=== PATIENT | female | born 1950 | race Caucasian/White ===

== ENCOUNTER 2021-03-11 10:49 | Day surgery (SDC) | payer MEDICARE, OTHER ==
[2021-03-11] MEDS ORDERED: cefUROXime sodium 0.005 GM in Sodium Chloride Flush 30 ML*** 0.5 ML IJ SCH (11:00)
[2021-03-11] MEDS ORDERED: Ak-Dilate OPHTHALMIC*** 1.065 ML, Cyclogyl 1% OPHTH SOL 5 ML 1.065 ML, GATIFLOXACIN 0.5... OP ONE ×4 (11:00)
[2021-03-11] MEDS ORDERED: Lactated Ringers 1,000 ML IV SCH (11:00)
[2021-03-11] MEDS ORDERED: TETRACAINE 0.5% STERI-UNIT SOL OP ONE ×2 (11:00)
[2021-03-11] MEDS ORDERED: BETADINE 5% OPHTHALMIC 30 ML OP ONE (11:00)
[2021-03-11] MEDS ORDERED: NON-FORMULARY ITEM OP ONE (11:00)
[2021-03-11] MEDS ORDERED: Lactated Ringers 1,000 ML IV ONE (11:28)
[2021-03-11] MEDS ORDERED: DIPRIVAN 200 MG/20 ML IV ONE ×2 (12:52→13:00)
[2021-03-11] MEDS ORDERED: ACETAZOLAMIDE 250 MG TABLET PO ONE (13:00)
[2021-03-11] MEDS ORDERED: LIDOCAINE HCL 1% 50 MG/5 ML VL PF IJ ONE (13:00)
[2021-03-11] MEDS ORDERED: Zofran 4 MG/2 ML VIAL IV PRN (13:00)
[2021-03-11] MEDS ORDERED: Epinephrine Preservative Free 1 MG/ML INTRAOP ONE (13:00)
[2021-03-11 14:33] VITALS: BP 134/79; PULSE 60; O2SAT 97
== END 2021-03-11 14:30 | disposition home or self-care (01) ==
LOC: SDC 10:49
PROVIDERS: ATTEND Ophthalmology
DX: H25.812 Combined forms of age-related cataract, left eye (principal); Z79.899 Other long term (current) drug therapy
CPT/HCPCS: 99100; C1780; J0171; J2001; J2704; A9270-GY

== ENCOUNTER 2024-11-18 18:30 | Emergency (ER) | payer MEDICARE, OTHER ==
[2024-11-18 18:49] VITALS: TEMP 97.4
--- NOTE | 2024-11-18 18:51 | ERPHSYRPT ---
- History of Present Illness Source: patient, family Exam Limitations: no limitations Method of Injury: fell Occurred: just prior to arrival Quality: constant, aching Severity of Pain-Max: moderate Severity of Pain-Current: moderate Lower Extremities Pain: foot: left, ankle: left Modifying Factors: Improves With: movement Associated Symptoms: other (Hurts to bear weight) Hx Tetanus, Diphtheria Vaccination/Date Given: Yes Hx Influenza Vaccination/Date Given: No Hx Pneumococcal Vaccination/Date Given: No <DAMION BULLARD - Last Filed: 11/18/24 18:44> <GHADA ORTEGA - Last Filed: 11/18/24 19:39> - History of Present Illness Time Seen by Provider: 11/18/24 18:44 Physician History: This is an obese 74-year-old white female patient of Dr. Montalvo who arrives by private vehicle accompanied by her daughter. Patient was outside ambulating prior to arrival when she slipped on ice while walking on steps. She did not injure her head and neck and she has no head and neck pain. She denies chest pain. She denies abdominal pain. She has no other extremity pain complaints. (DAMION BULLARD) Allergies/Adverse Reactions: Penicillins Allergy (Intermediate, Verified 11/18/24 18:35) Rash Home Medications: No Reportable Medications [No Reported Medications] 11/18/24 [History] Travel Risk - International Travel Have you traveled outside of the country in past 3 weeks: No - Emerging Infectious Disease Are you exhibiting symptoms associated with any current EIDs: No <DAMION BULLARD - Last Filed: 11/18/24 18:44> - Review of Systems Constitutional: No Symptoms Eyes: No Symptoms Ears, Nose, & Throat: No Symptoms Respiratory: No Symptoms Cardiac: No Symptoms Abdominal/Gastrointestinal: No Symptoms Genitourinary Symptoms: No Symptoms Musculoskeletal: Fall, Injury (Left foot and ankle) Skin: No Symptoms Neurological: No Symptoms Psychological: No Symptoms Endocrine: No Symptoms Hematologic/Lymphatic: No Symptoms Immunological/Allergic: No Symptoms All Other Systems: Reviewed and Negative <DAMION BLULARD - Last Filed: 11/18/24 18:44> - Past Medical History Pertinent Past Medical History: Yes Neurological History: No Pertinent History ENT History: Cataracts Cardiac History: No Pertinent History Respiratory History: No Pertinent History Endocrine Medical History: No Pertinent History Musculoskeletal History: Arthritis, Other GI Medical History: No Pertinent History History: No Pertinent History Psycho-Social History: No Pertinent History Female Reproductive Disorders: No Pertinent History Other Medical History: 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 - Past Surgical History Past Surgical History: Yes Neuro Surgical History: No Pertinent History Cardiac: No Pertinent History Respiratory: No Pertinent History Gastrointestinal: Bowel Surgery, Hernia Repair Genitourinary: No Pertinent History Musculoskeletal: No Pertinent History Female Surgical History: Other Other Surgical History: melanoma removed. ovaries removed. port placement - Social History Smoking Status: Never smoker Exposure to second hand smoke: No <DAMION BULLARD - Last Filed: 11/18/24 18:44> - Physical Exam General Appearance: alert, anxiety, obese Eyes, Ears, Nose, Throat Exam: normal ENT inspection Neck Exam: normal inspection, non-tender, supple, full range of motion Cardiovascular/Respiratory Exam: chest non-tender, no respiratory distress Gastrointestinal/Abdominal Exam: non-tender Back Exam: normal inspection, normal range of motion, No CVA tenderness, No vertebral tenderness Hips Exam: bilateral: non-tender, normal inspection, normal range of motion, no evidence of injury Legs Exam: bilateral leg: non-tender, normal inspection, normal range of motion, no evidence of injury Knees Exam: bilateral knee: non-tender, normal inspection, normal range of motion, no evidence of injury Ankle Exam: right ankle: non-tender, normal inspection, normal range of motion, no evidence of injury, left ankle: bone tenderness, soft tissue tenderness Foot Exam: right foot: non-tender, normal inspection, normal range of motion, no evidence of injury, left foot: soft tissue tenderness, swelling, other (Patient has strong left pedal pulses) Neuro/Tendon Exam: normal sensation, normal motor functions, normal tendon functions Mental Status Exam: alert, oriented x 3, cooperative Skin Exam: normal color, warm, dry SpO2 Interpretation: normal O2 Delivery: Room Air <DAMION BULLARD - Last Filed: 11/18/24 18:44> - Nursing Vital Signs Nursing Vital Signs: Initial Vital Signs Temperature 97.4 F 11/18/24 18:39 Pulse Rate 79 11/18/24 18:39 Respiratory Rate 17 11/18/24 18:39 Blood Pressure 161/96 11/18/24 18:39 O2 Sat by Pulse Oximetry 97 11/18/24 18:39 Pain Scale Pain Intensity 3 - Course Nursing assessment & vital signs reviewed: No <DAMION BULLARD - Last Filed: 11/18/24 18:44> Ordered Tests: Active Orders 24 hr Category Date Time Status ANKLE (3 VIEWS) Stat Exams 11/18/24 18:33 Taken FOOT (MINIMUM 3 VIEWS) Stat Exams 11/18/24 18:44 Taken - Progress Progress: unchanged, pain not gone completely <DAMION BULLARD - Last Filed: 11/18/24 18:44> <GHADA ORTEGA - Last Filed: 11/18/24 19:39> - Progress Progress Note: 11/18/24 18:45 My medical decision making in the assignment of low complexity to this patient's medical issue today is based on review of the patient's past medical history, reviewed the patient's medication list, reviewed patient drug allergy list, history present illness and physical findings on examination. The workup in this patient includes x-ray of the patient's left foot and ankle. Differential diagnosis includes but not limited to fracture/dislocation/sprain left foot and ankle. 11/18/24 18:45 I am transferring care of this patient to Dr. Ortega at shift change. He will follow-up on the pending studies and make final disposition. (DAMION BULLARD) X-ray was done was independently interpreted by me. There is a distal fibular fracture. It is not horribly displaced. At this time he is going to give her a walking boot and some crutches and follow-up with orthopedics 11/18/24 19:36 (GHADA ORTEGA) Medical Desision Making - Independent Historian Additional History obtained from: Family <DAMION BULLARD - Last Filed: 11/18/24 18:44> - Departure Departure Disposition: Home Critical Care Time: No <DAMION BULLARD - Last Filed: 11/18/24 18:44> - Departure Critical Care Time: No <GHADA ORTEGA - Last Filed: 11/18/24 19:39> - Departure Clinical Impression: Injury of left ankle, Fracture of distal end of left fibula Condition: Stable Referrals: KEON MONTALVO MD [Primary Care Provider] - Follow up/PCP as directed JAZMINE LOMELI MD [ACTIVE STAFF] - Follow up/PCP as directed Instructions: Ankle fracture
[2024-11-18 19:53] VITALS: BP 153/91; PULSE 69; RESP 18; O2SAT 96
--- NOTE | 2024-11-18 21:07 | XRAY ---
Indication: Pain and swelling following fall. Comparison: None 3 view left ankle demonstrates nondisplaced oblique fracture distal shaft fibula with diffuse soft tissue swelling. Elsewhere osteopenia. No other bony, articular, or soft tissue abnormalities.
--- NOTE | 2024-11-18 21:07 | XRAY ---
Indication: Pain and swelling following fall. Comparison: None 3 nonweightbearing views left foot demonstrates nondisplaced oblique fracture distal shaft fibula with diffuse ankle soft tissue swelling. Elsewhere osteopenia and mild 1st MTP bunion deformity. No other bony, articular, or soft tissue abnormalities.
== END 2024-11-18 20:20 | disposition home or self-care (01) ==
LOC: ED 18:30
DX: S82.832A Other fracture of upper and lower end of left fibula, initial encounter for closed fracture (principal); W00.1XXA Fall from stairs and steps due to ice and snow, initial encounter
CPT/HCPCS: 73610; 73630; 99283